=== PATIENT | male | born 1965 | race Caucasian/White ===

== ENCOUNTER 2016-12-13 12:04 | Emergency (ER) | payer OTHER ==
[~2016-12-13] VITALS: Ht 171.5 cm; Wt 81.6 kg
[~2016-12-13 12:04] MED LIST: IBUP-1050 PO
[2016-12-13 12:08] VITALS: TEMP 36.6; Ht 171.5 cm; Wt 81.6 kg
[2016-12-13] MEDS ORDERED: PROPARACAINE HCL 0.5% OP SOLN 15 ML BTL ONE (12:19)
[2016-12-13] MEDS ORDERED: [UNRECOGNIZED DRUG - MIXTURE] IV PRN ×2 (14:30)
[2016-12-13 14:47] VITALS: BP 126/92; PULSE 64; O2SAT 99
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
== END 2016-12-13 14:57 | disposition home or self-care (01) ==
LOC: C.EDB 12:05 → C.EDD 14:57
DX: T54.2X1A Toxic effect of corrosive acids and acid-like substances, accidental (unintentional), initial encounter (principal); T65.891A Toxic effect of other specified substances, accidental (unintentional), initial encounter; T26.92XA Corrosion of left eye and adnexa, part unspecified, initial encounter; Z82.49 Family history of ischemic heart disease and other diseases of the circulatory system; Y99.0 Civilian activity done for income or pay; Y92.59 Other trade areas as the place of occurrence of the external cause